=== PATIENT | male | born 1945 | race Caucasian/White ===

== ENCOUNTER 2016-07-26 14:16 | Inpatient (IN) | payer MEDICARE, OTHER ==
[~2016-07-26] VITALS: Ht 182.9 cm; Wt 73.6 kg
[2016-07-26 14:19] VITALS: BP 147/68; PULSE 138; RESP 12; TEMP 98.9; O2SAT 97
[2016-07-26] MEDS ORDERED: SODIUM CHLOR 0.9% 1000 ML INJ 1,000 ML IV ONE ×2 (15:45)
--- NOTE | 2016-07-26 15:50 | PD ---
HPI Chief Complaint: General Weakness Time Seen by Provider: 15:23 Travel History International Travel<30 days: No Contact w/Intl Traveler<30days: No Traveled to known affect area: No History of Present Illness HPI 71-year-old male who has a history of multiple sclerosis who presents to the emergency department feeling chills for 2 days, worse this morning, associated with a fever of 101. Patient reports he gets frequent urinary tract infections as he has an indwelling Morfin catheter and this feels similar. He also thinks he see hydrated. He says he may have some skin breakdown on his buttocks. He recently moved from [place]. He does not have a neurologist right now. He is only taking baclofen for his multiple sclerosis. [facility] Past Medical History Hypertension: Yes Medical other: Yes (MS) Tetanus Vaccination: Unknown Influenza Vaccination: No Past Surgical History Cholecystectomy: Yes Tonsillectomy: Yes Social History Alcohol Use: No Tobacco Use: No Substance Use: No Allergies-Medications (Allergen,Severity, Reaction): Coded Allergies: No Known Allergies (Unverified , 07/26/16) Reported Meds & Prescriptions Reported Meds & Active Scripts Active Reported One Daily For Men 50+ Adv (Multiple Vitamins W/ Minerals) 1 Tab Tab 1 Tab PO DAILY Flaxseed Oil (Flaxseed (Linseed)) 1,000 Mg Cap 1,000 Mg PO DAILY Fish Oil 1000 mg ([place]-3 Fatty Acids) 1 Cap Cap 3,000 Units PO DAILY Aspirin Adult Low Strength (Aspirin) 81 Mg Tabdr 81 Mg PO DAILY Klonopin (Clonazepam) 1 Mg Tab 1.5 Mg PO HS Lipitor (Atorvastatin Calcium) 10 Mg Tab 10 Mg PO DAILY Amlodipine (Amlodipine Besylate) 5 Mg Tab 7.5 Mg PO DAILY Baclofen 20 Mg Tab 20 Mg PO QID Review of Systems Except as stated in HPI: all other systems reviewed are Neg Physical Exam Narrative GENERAL: Frail elderly SKIN: Warm and dry. HEAD: Atraumatic. Normocephalic. EYES: Pupils equal and round. No injection or drainage. ENT: Dry mucous membranes. NECK: Trachea midline. CARDIOVASCULAR: Regular rate and rhythm. No murmur appreciated. RESPIRATORY: Clear to auscultation. Breath sounds equal bilaterally. GASTROINTESTINAL: Abdomen soft, non-tender, nondistended. MUSCULOSKELETAL: No obvious deformities. NEUROLOGICAL: Quadriplegia, no dysarthria or aphasia, speaks and answers questions appropriately. PSYCHIATRIC: Appropriate mood and affect; insight and judgment normal. Data Data Last Documented VS Vital Signs Date Time Temp Pulse Resp B/P Pulse Ox O2 Delivery O2 Flow Rate FiO2 07/26/16 17:50 106 18 147/70 97 Room Air 07/26/16 14:19 98.9 Orders Electrocardiogram (07/26/16 14:20) Complete Blood Count With Diff (07/26/16 14:20) Comprehensive Metabolic Panel (07/26/16 15:45) Blood Culture (07/26/16 15:45) Lactic Acid (07/26/16 15:45) Urinalysis - C+S If Indicated (07/26/16 15:45) Sodium Chlor 0.9% 1000 Ml Inj (Ns 1000 M (07/26/16 15:45) Sodium Chlor 0.9% 1000 Ml Inj (Ns 1000 M (07/26/16 15:45) Consult Vascular Access Team (07/26/16 ) Vascular Poc Ultrasound (07/26/16 ) Chest, Single Ap (07/26/16 ) Vancomycin Inj (Vancomycin Inj) (07/26/16 18:15) Cefepime Inj (Maxipime Inj) (07/26/16 18:15) Influenzae A/B Antigen (07/26/16 18:04) Admit Order (Ed Use Only) (07/26/16 18:17) Labs Laboratory Tests Test 07/26/16 16:20 White Blood Count 15.0 TH/MM3 Red Blood Count 5.05 MIL/MM3 Hemoglobin 14.7 GM/DL Hematocrit 41.0 % Mean Corpuscular Volume 81.3 FL Mean Corpuscular Hemoglobin 29.1 PG Mean Corpuscular Hemoglobin 35.8 % Concent Red Cell Distribution Width 14.7 % Platelet Count 222 TH/MM3 Mean Platelet Volume 8.6 FL Neutrophils (%) (Auto) 86.2 % Lymphocytes (%) (Auto) 8.2 % Monocytes (%) (Auto) 5.4 % Eosinophils (%) (Auto) 0.0 % Basophils (%) (Auto) 0.2 % Neutrophils # (Auto) 13.0 TH/MM3 Lymphocytes # (Auto) 1.2 TH/MM3 Monocytes # (Auto) 0.8 TH/MM3 Eosinophils # (Auto) 0.0 TH/MM3 Basophils # (Auto) 0.0 TH/MM3 CBC Comment DIFF FINAL Differential Comment Urine Color YELLOW Urine Turbidity HAZY Urine pH 7.0 Urine Specific [place] 1.009 Urine Protein NEG mg/dL Urine Glucose (UA) NEG mg/dL Urine Ketones 40 mg/dL Urine Occult Blood NEG Urine Nitrite NEG Urine Bilirubin NEG Urine Urobilinogen LESS THAN 2.0 MG/DL Urine Leukocyte Esterase NEG Urine RBC 1 /hpf Urine WBC 1 /hpf Urine Bacteria RARE /hpf Urine Mucus FEW /lpf Microscopic Urinalysis Comment CATH-CULT NOT IND Sodium Level 135 MEQ/L Potassium Level 3.0 MEQ/L Chloride Level 98 MEQ/L Carbon Dioxide Level 27.1 MEQ/L Anion Gap 10 MEQ/L Blood Urea Nitrogen 5 MG/DL Creatinine 0.43 MG/DL Estimat Glomerular Filtration 196 ML/MIN Rate Random Glucose 122 MG/DL Lactic Acid Level 1.3 mmol/L Calcium Level 8.8 MG/DL Total Bilirubin 1.8 MG/DL Aspartate Amino Transf 30 U/L (AST/SGOT) Alanine Aminotransferase 52 U/L (ALT/SGPT) Alkaline Phosphatase 179 U/L Total Protein 8.0 GM/DL Albumin 3.7 GM/DL MDM Medical Decision Making Medical Screen Exam Complete: Yes Emergency Medical Condition: Yes Interpretation(s) Afebrile, tachycardic, hypertensive Leukocytosis with left shift Hypokalemia Lactic acid 1.3 Urinalysis negative for infection Differential Diagnosis Urinary tract infection, pneumonia, influenza, cellulitis Narrative Course This is a 71-year-old male who presents to the emergency department with fever and tachycardia. He has a history of multiple sclerosis and is a quadriplegic. Patient was placed on a monitor and an IV was established. Labs are obtained which demonstrates a white count of 15 with a left shift. Urinalysis was negative for infection but chest x-ray does reveal a possible pneumonia. Patient will be admitted for IV antibiotics. Diagnosis Primary Impression: Pneumonia Qualified Code: J18.1 - Pneumonia of right middle lobe due to infectious organism Admitting Information Admitting Physician Requests: Admit Nelsy Jean MD Jul 26, 2016 15:50
[2016-07-26 16:54] LABS: BASOPHIL % 0.2 % (0.0-2.0); HEMO FLAGS DIFF FINAL; LYMPH % 8.2 % (9.0-44.0); LYMPHOCYTE # 1.2 TH/MM3 (1.0-4.8); MEAN CELL VOLUME 81.3 FL (80.0-100.0); MEAN CORPUSCULAR HEMOGLOBIN 29.1 PG (27.0-34.0); MEAN CORPUSCULAR HGB CONC 35.8 % (32.0-36.0); MONO % 5.4 % (0.0-8.0); NEUT % 86.2 % (16.0-70.0); PLATELET COUNT 222 TH/MM3 (150-450); RED BLOOD COUNT 5.05 MIL/MM3 (4.50-5.90); RED CELL DISTRIBUTION WIDTH 14.7 % (11.6-17.2)
[2016-07-26] MEDS ORDERED: AMLO5TAB2 PO (16:55)
[2016-07-26] MEDS ORDERED: ASPI1TAB91 PO (16:55)
[2016-07-26] MEDS ORDERED: OMEG100037 PO (16:55)
[2016-07-26] MEDS ORDERED: BACL20TA PO (16:55)
[2016-07-26] MEDS ORDERED: LIPI10TA PO (16:55)
[2016-07-26] MEDS ORDERED: CLON1 PO (16:55)
[2016-07-26 16:57] LABS: BACTERIA, URINE RARE /hpf; BLOOD, URINE NEG (NEG); GLUCOSE,URINE NEG (NEG); KETONE, URINE 40 mg/dL (NEG); MUCUS URINE FEW /lpf (OCC); NITRITE,URINE NEG (NEG); URINE COLOR YELLOW (YELLW/STRAW)
[2016-07-26] MEDS ORDERED: ONETAB9 PO (16:57)
[2016-07-26] MEDS ORDERED: FLAX10006 PO (16:57)
[2016-07-26 16:59] LABS: COMMENT (UR) CATH-CULT NOT IND; CULTURE IF INDICATED CATH CULTURE NOT IND
[2016-07-26 17:12] LABS: ANION GAP 10 MEQ/L (5-15); AST (GOT) 30 U/L (15-37); BICARBONATE 27.1 MEQ/L (21.0-32.0); BLOOD UREA NITROGEN 5 MG/DL (7-18); CHLORIDE 98 MEQ/L (98-107); GLOMERULAR FILTRATION RATE 196 ML/MIN (>89); SODIUM (NA) 135 MEQ/L (136-145)
[2016-07-26 17:15] LABS: ALKALINE PHOSPHATASE 179 U/L (45-117); ALT (GPT) 52 U/L (12-78); TOTAL BILIRUBIN ADULT 1.8 MG/DL (0.2-1.0)
[2016-07-26 17:50] VITALS: BP 147/70; PULSE 106; RESP 18; O2SAT 97
[2016-07-26] MEDS ORDERED: CEFEPIME INJ 2,000 MG in SODIUM CHLORIDE 0.9% INJ 100 ML IV ONE (18:15)
[2016-07-26] MEDS ORDERED: VANCOMYCIN INJ 1,250 MG in SODIUM CHLOR 0.9% 250 ML INJ 250 ML IV ONE (18:15)
--- NOTE | 2016-07-26 18:23 | RADRPT ---
EXAM DATE/TIME: 07/26/2016 18:09 [place] COMPARISON: No previous studies available for comparison. INDICATIONS : Fever. MEDICAL HISTORY : Paralysis. SURGICAL HISTORY : None. ENCOUNTER: Initial ACUITY: 1 day PAIN SCORE: 0/10 LOCATION: Bilateral chest FINDINGS: Minimal infiltrates seen laterally at the right mid lung. Lungs otherwise appear clear. No pleural ef fusion or pneumothorax. Heart size normal. CONCLUSION: Focal right mid lung pneumonia. Followup to resolution recommended. Vj Jones MD on July 26, 2016 at 18:21 Board Certified Radiologist. This report was verified electronically.
--- NOTE | 2016-07-26 18:54 | HHI.HP ---
[facility] Service Family Medicine Primary Care Physician No Primary Care Physician Admission Diagnosis sepsis Diagnoses: International Travel<30 Days: No Contact w/Intl Traveler<30days: No Known Affected Area: No History of Present Illness This is a 71-year-old quadriplegic male who presents with fever and chills since this morning. He woke up this morning 07/26/2016 feeling chilled. He also felt sick to his stomach and had the shakes. He knew by 10 AM that "something was wrong." He states he knows his body very well and knows when he has a high white count. He is quadriplegic and sedentary. He states his brother had a pneumonia last week. Denies coughing, nausea, vomiting, diarrhea. He does use a condom catheter and has had urinary tract infections in the past. He denies dysuria, urinary frequency. Review of Systems Constitutional: COMPLAINS OF: Fever, Chills Eyes: DENIES: Blurred vision, Diplopia Ears, nose, mouth, throat: DENIES: Tinnitus, Hearing loss Respiratory: COMPLAINS OF: Sputum production, DENIES: Cough, Shortness of breath Cardiovascular: DENIES: Chest pain, Palpitations Gastrointestinal: DENIES: Abdominal pain, Black stools, Constipation, Diarrhea , Nausea, Vomiting Genitourinary: DENIES: Urgency, Hematuria, Dysuria Neurologic: DENIES: Abnormal gait, Headache Past Family Social History Past Medical History MS Quadripelgic since 29 years of age Past Surgical History Gall bladder Tonsilectomy Reported Medications Reported Meds & Active Scripts Active Reported One Daily For Men 50+ Adv (Multiple Vitamins W/ Minerals) 1 Tab Tab 1 Tab PO DAILY Flaxseed Oil (Flaxseed (Linseed)) 1,000 Mg Cap 1,000 Mg PO DAILY Fish Oil 1000 mg ([place]-3 Fatty Acids) 1 Cap Cap 3,000 Units PO DAILY Aspirin Adult Low Strength (Aspirin) 81 Mg Tabdr 81 Mg PO DAILY Klonopin (Clonazepam) 1 Mg Tab 1.5 Mg PO HS Lipitor (Atorvastatin Calcium) 10 Mg Tab 10 Mg PO DAILY Amlodipine (Amlodipine Besylate) 5 Mg Tab 7.5 Mg PO DAILY Baclofen 20 Mg Tab 20 Mg PO QID Allergies: Coded Allergies: No Known Allergies (Unverified , 07/26/16) Active Ordered Medications Active Medications Cefepime HCl/ Sodium Chloride (Maxipime Inj/NS Inj) 100 ml @ 200 mls/hr ONCE ONCE IV; Start 07/26/16 at 18:15; Stop 07/26/16 at 18:44; Status DC Sodium Chloride 1,000 ml @ 999 mls/hr BOLUS ONCE IV Last administered on t 17:49; Admin Dose 999 MLS/HR; Start 07/26/16 at 15:45; Stop 07/26/16 at 16:45 ; Status DC Sodium Chloride 1,000 ml @ 999 mls/hr BOLUS ONCE IV; Start 07/26/16 at 15:45; Stop 07/26/16 at 16:45; Status DC Vancomycin HCl 1250 mg/Sodium Chloride 262.5 ml @ 250 mls/hr ONCE ONCE IV; Start 07/26/16 at 18:15; Stop 07/26/16 at 19:17 Family History Mom: healthy Dad: alcoholic, cirrhosis Social History From [place]; 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 No acute distress. SKIN: No rashes, ecchymoses or lesions. Cool and dry. HEAD: Atraumatic. Normocephalic. No temporal or scalp tenderness. EYES: Pupils equal round and reactive. Extraocular motions intact. No scleral icterus. No injection or drainage. ENT: Nose without bleeding, purulent drainage or septal hematoma. Throat without erythema, tonsillar hypertrophy or exudate. Uvula midline. Airway patent. NECK: Trachea midline. No JVD or lymphadenopathy. Supple, nontender, no meningeal signs. CARDIOVASCULAR: Tachycardic rate and rhythm without murmurs, gallops, or rubs. RESPIRATORY: Clear to auscultation. Breath sounds equal bilaterally. No wheezes , rales, or rhonchi. GASTROINTESTINAL: Abdomen soft, non-tender, nondistended. No hepato-splenomegaly , or palpable masses. No guarding. MUSCULOSKELETAL: Extremities without clubbing, cyanosis, or edema. No joint tenderness, effusion, or edema noted. No calf tenderness. Negative Homans sign bilaterally. NEUROLOGICAL: Awake and alert. Cranial nerves II through XII intact. Motor and sensory grossly within normal limits. Five out of 5 muscle strength in all muscle groups. Normal speech. Laboratory Laboratory Tests Test 07/26/16 16:20 White Blood Count 15.0 Red Blood Count 5.05 Hemoglobin 14.7 Hematocrit 41.0 Mean Corpuscular Volume 81.3 Mean Corpuscular Hemoglobin 29.1 Mean Corpuscular Hemoglobin 35.8 Concent Red Cell Distribution Width 14.7 Platelet Count 222 Mean Platelet Volume 8.6 Neutrophils (%) (Auto) 86.2 Lymphocytes (%) (Auto) 8.2 Monocytes (%) (Auto) 5.4 Eosinophils (%) (Auto) 0.0 Basophils (%) (Auto) 0.2 Neutrophils # (Auto) 13.0 Lymphocytes # (Auto) 1.2 Monocytes # (Auto) 0.8 Eosinophils # (Auto) 0.0 Basophils # (Auto) 0.0 CBC Comment DIFF FINAL Differential Comment Urine Color YELLOW Urine Turbidity HAZY Urine pH 7.0 Urine Specific [place] 1.009 Urine Protein NEG Urine Glucose (UA) NEG Urine Ketones 40 Urine Occult Blood NEG Urine Nitrite NEG Urine Bilirubin NEG Urine Urobilinogen LESS THAN 2.0 Urine Leukocyte Esterase NEG Urine RBC 1 Urine WBC 1 Urine Bacteria RARE Urine Mucus FEW Microscopic Urinalysis Comment CATH-CULT NOT IND Sodium Level 135 Potassium Level 3.0 Chloride Level 98 Carbon Dioxide Level 27.1 Anion Gap 10 Blood Urea Nitrogen 5 Creatinine 0.43 Estimat Glomerular Filtration 196 Rate Random Glucose 122 Lactic Acid Level 1.3 Calcium Level 8.8 Total Bilirubin 1.8 Aspartate Amino Transf 30 (AST/SGOT) Alanine Aminotransferase 52 (ALT/SGPT) Alkaline Phosphatase 179 Total Protein 8.0 Albumin 3.7 Date/Time Procedure Status Source Growth 07/26/16 16:25 Aerobic Blood Culture Received Blood Peripheral Pending 07/26/16 16:25 Anaerobic Blood Culture Received Blood Peripheral Pending Result Diagram: 07/26/16 1620 07/26/16 1620 Imaging Chest x-ray-focal right mid lung pneumonia. Follow-up to resolution recommended. Assessment and Plan Assessment and Plan 71-year-old quadriplegic male presents septic (tachycardic, increased white count, pneumonia on x-ray). He will be treated with IV antibiotics and fluids. Code Status Full Discussed Condition With Dr. Muniz Problem List: (1) Sepsis Status: Acute Plan: Patient meets sepsis criteria with elevated heart rate, increased white blood cell count, pneumonia on x-ray. Patient was given IV fluids, vancomycin and cefepime in the emergency room. -Blood cultures pending. -Lactic acid 1.3 -Continue normal saline 120 mL per hour -Ceftriaxone 1 g every 24 hours IV -Azithromycin 500 mg every 24 hours IV -Repeat labs in a.m. (2) Pneumonia Status: Acute Plan: See above for sepsis. (3) Quadriplegia Status: Acute Plan: Nursing order for patient to be placed near nurses station as he cannot use the call button. Vitals every 2 hours Patient will also need help with feedings Continue condom catheter use Patient has personal physical therapy regimen at home and does not want physical therapy consult at this time. (4) FEN/PPX Status: Acute Plan: Fluids: Normal saline at 120 ml per hour Electrolytes: Monitor and replace when necessary Nutrition: Regular diet Prophylaxis: Lovenox 40 mg subcutaneous Chronic medical problems: Multiple sclerosis- continue baclofen 20 mg by mouth 4 times a day Hypertension-continue amlodipine 5 mg by mouth daily Hyperlipidemia-continue Lipitor 10 mg by mouth daily Anxiety-continue Klonopin 1.5 mg by mouth at bedtime Physician Certification 2 Midnight Certification Type: Admission for Inpatient Services Order for Inpatient Services The services are ordered in accordance with Medicare regulations or non- Medicare payer requirements, as applicable. In the case of services not specified as inpatient-only, they are appropriately provided as inpatient services in accordance with the 2-midnight benchmark. Estimated LOS (days): 2 days is the estimated time the patient will need to remain in the hospital, assuming treatment plan goals are met and no additional complications. Post-Hospital Plan: Home Problem Qualifiers (1) Pneumonia: Qualified Code: J18.1 - Pneumonia of right middle lobe due to infectious organism Jamir Rdz MD R2 Jul 26, 2016 18:53
[2016-07-26] MEDS ORDERED: ONDANSETRON HCL 4 MG/2 ML VIAL IV PRN (19:45)
[2016-07-26] MEDS ORDERED: hydrALAZINE HCL 10 MG TAB PO PRN (19:45)
[2016-07-26] MEDS ORDERED: TEMAZEPAM 15 MG CAP PO PRN (19:45)
[2016-07-26] MEDS ORDERED: MORPHINE SULFATE 4 MG/ML INJ IV PUSH PRN (19:45)
[2016-07-26] MEDS ORDERED: ACETAMINOPHEN 325 MG TAB PO PRN (19:45)
[2016-07-26] MEDS ORDERED: DOCUSATE SODIUM 50 MG/SENNA 8.6 MG TAB PO PRN (19:45)
[2016-07-26] MEDS ORDERED: POTASSIUM CHLORIDE 25 MEQ EFFERVESCENT TAB PO ONE (20:00)
[2016-07-26] MEDS ORDERED: PILL SPLITTER OTHER PRN (20:00)
[2016-07-26] MEDS ORDERED: ENOXAPARIN SODIUM 40 MG/0.4 ML SYRINGE SQ SCH (20:00)
[2016-07-26] MEDS: SODIUM CHLOR 0.9% 1000 ML INJ 1,000 ML IV SCH (20:53)
[2016-07-26] MEDS ORDERED: clonazePAM 1 MG TAB PO SCH (21:00)
[2016-07-27] VITALS: BP 136/63; PULSE 105; RESP 20; TEMP 98.8; O2SAT 98
[2016-07-27] MEDS: BACLOFEN 20 MG TAB PO SCH ×2 (00:02→08:59)
[2016-07-27 04:00] VITALS: BP 136/66; PULSE 101; RESP 18; TEMP 98.9; O2SAT 98
[2016-07-27] MEDS: SODIUM CHLOR 0.9% 1000 ML INJ 1,000 ML IV SCH (04:20)
[2016-07-27 06:57] LABS: AUTOMATED NEUTROPHIL # 3.6 TH/MM3 (1.8-7.7); BASOPHIL % 0.5 % (0.0-2.0); EOSINOPHIL % 0.5 % (0.0-4.0); HEMATOCRIT 36.2 % (39.0-51.0); HEMO FLAGS DIFF FINAL; LYMPH % 29.3 % (9.0-44.0); LYMPHOCYTE # 1.8 TH/MM3 (1.0-4.8); MEAN CELL VOLUME 81.2 FL (80.0-100.0); MEAN CORPUSCULAR HEMOGLOBIN 29.1 PG (27.0-34.0); MEAN CORPUSCULAR HGB CONC 35.8 % (32.0-36.0); MONO % 10.1 % (0.0-8.0); NEUT % 59.6 % (16.0-70.0); PLATELET COUNT 160 TH/MM3 (150-450); RED BLOOD COUNT 4.46 MIL/MM3 (4.50-5.90); RED CELL DISTRIBUTION WIDTH 14.6 % (11.6-17.2); WHITE BLOOD COUNT 6.1 TH/MM3 (4.0-11.0)
[2016-07-27 07:31] LABS: ALKALINE PHOSPHATASE 142 U/L (45-117); ALT (GPT) 47 U/L (12-78); ANION GAP 10 MEQ/L (5-15); AST (GOT) 29 U/L (15-37); BICARBONATE 24.7 MEQ/L (21.0-32.0); BLOOD UREA NITROGEN 4 MG/DL (7-18); CHLORIDE 105 MEQ/L (98-107); GLOMERULAR FILTRATION RATE 296 ML/MIN (>89); SODIUM (NA) 140 MEQ/L (136-145); TOTAL BILIRUBIN ADULT 1.4 MG/DL (0.2-1.0)
[2016-07-27 07:43] LABS: POTASSIUM 2.8 MEQ/L (3.5-5.1)
[2016-07-27 08:14] VITALS: BP 124/67; PULSE 101; RESP 18; TEMP 97.5; O2SAT 98
[2016-07-27] MEDS ORDERED: SOD PHOSPHATE/SOD BIPHOSPHATE (ADULT) ENEMA 133ML PR PRN (08:15)
[2016-07-27] MEDS ORDERED: POTASSIUM CHLORIDE 20 MEQ CONTROLLED RELEASE TAB PO ONE (08:15)
[2016-07-27] MEDS ORDERED: SOD PHOSPHATE/SOD BIPHOSPHATE (ADULT) ENEMA 133ML PR ONE (08:15)
[2016-07-27] MEDS ORDERED: LEVA750T PO (08:59)
[2016-07-27] MEDS ORDERED: POTASSIUM CHLORIDE 10 MEQ CONTROLLED RELEASE TAB PO ONE (09:00)
[2016-07-27] MEDS ORDERED: ATORVASTATIN 10 MG TAB PO SCH (09:00)
[2016-07-27] MEDS ORDERED: amLODIPine BESYLATE 5 MG TAB PO SCH (09:00)
[2016-07-27] MEDS ORDERED: ASPIRIN EC 81 MG TABEC PO SCH (09:00)
--- NOTE | 2016-07-27 09:00 | HHI.DCPOC ---
Discharge Care Plan Diagnosis: (1) Pneumonia (2) Quadriplegia Goals to Promote Your Health * To prevent worsening of your condition and complications * To maintain your health at the optimal level Directions to Meet Your Goals Take your medications as prescribed Follow your dietary instruction Follow activity as directed Keep your appointments as scheduled Take your immunizations and boosters as scheduled If your symptoms worsen call your PCP, if no PCP go to Urgent Care Center or Emergency Room Smoking is Dangerous to Your Health. Avoid second hand smoke Call the 24-hour hour crisis hotline for domestic abuse at Jamir Rdz MD R2 Jul 27, 2016 09:00
[2016-07-27] MEDS ORDERED: POTASSIUM CL 40 MEQ/30 ML LIQ UDC PO ONE (10:00)
--- NOTE | 2016-07-27 10:08 | HHI.FPPN ---
Subjective Remarks Pt. seen, examined and discussed with the medicine team. this is a 71 yo male with MS and resultant quadriplegia for 40 years, here with fever, chills and muscle aches at home. No cough. [place] [id number] caregivers. His brother lives here as well. He needs assistance for all ADLs. His brother recently was diagnosed with pneumonia. See H&P for this admission for additional past, family and social history. ROS this a.m. was obtained, his chills and aches are resolved, and he has no further sx of elevated temperature. Otherwise all systems negative. This a.m. he feels much better and would like to go home. Objective Vitals Vital Signs Date Time Temp Pulse Resp B/P Pulse Ox O2 Delivery O2 Flow Rate FiO2 07/27/16 08:14 97.5 101 18 124/67 98 07/27/16 04:00 98.9 101 18 136/66 98 07/27/16 00:00 98.8 105 20 136/63 98 07/26/16 17:50 106 18 147/70 97 Room Air 07/26/16 14:19 98.9 138 12 147/68 97 Room Air I/O 07/26/16 07/26/16 07/26/16 07/27/16 07/27/16 07/27/16 07:00 15:00 23:00 07:00 15:00 23:00 Intake Total 960 ml 1198 ml Output Total 1700 ml Balance -740 ml 1198 ml Intake Oral 960 ml IV Total 1198 ml Output Urine Total 1700 ml # Bowel Movements 0 Result Diagram: 07/27/16 0617 07/27/16 0617 Imaging Last Impressions Chest X-Ray 07/26/16 0000 Signed Impressions: Service Date/Time: Tuesday, July 26, 2016 18:09 - CONCLUSION: Focal right mid lung pneumonia. Followup to resolution recommended. Vj Jones MD Objective Remarks O. CONSTITUTIONAL/GEN: normally nourished, in NAD this a.m. EYES: conjunctiva normal, PERRLA, EOMI. ENT: Mouth and pharynx normal. NECK: thyroid midline neck supple. LUNGS: clear A-P, respiratory effort is normal. CARDIOVASCULAR: RR without murmur or gallop. No significant edema. GI/ABD: soft without masses, without organomegaly. NEURO: No focal deficits. SKIN: color normal, no rashes noted. HEME/LYMPH: no bruising, petechia or significant adenopathy PSYCH/MENTAL STATUS: Alert and oriented x 3. A/P Assessment and Plan 71-year-old quadriplegic male presents septic (tachycardic, increased white count, pneumonia on x-ray). He will be sent home with po Levaquin for 10 days and will need a f/u FINANCIAL SPECIALIST in 3-4 weeks. Attending Attestation Patient seen and examined. Case reviewed and discussed with the resident team. Agree with plan of care as discussed with me and documented in the resident note. Problem List: (1) Sepsis Status: Acute Plan: Patient meets sepsis criteria with elevated heart rate, increased white blood cell count, pneumonia on x-ray. Patient was given IV fluids, vancomycin and cefepime in the emergency room. -Blood cultures pending. -Lactic acid 1.3 -Continue normal saline 120 mL per hour -Ceftriaxone 1 g every 24 hours IV -Azithromycin 500 mg every 24 hours IV -Repeat labs in a.m. (2) Pneumonia Status: Acute Plan: See above for sepsis. (3) Quadriplegia Status: Acute Plan: Nursing order for patient to be placed near nurses station as he cannot use the call button. Vitals every 2 hours Patient will also need help with feedings Continue condom catheter use Patient has personal physical therapy regimen at home and does not want physical therapy consult at this time. (4) FEN/PPX Status: Acute Plan: Fluids: Normal saline at 120 ml per hour Electrolytes: Monitor and replace when necessary Nutrition: Regular diet Prophylaxis: Lovenox 40 mg subcutaneous Chronic medical problems: Multiple sclerosis- continue baclofen 20 mg by mouth 4 times a day Hypertension-continue amlodipine 5 mg by mouth daily Hyperlipidemia-continue Lipitor 10 mg by mouth daily Anxiety-continue Klonopin 1.5 mg by mouth at bedtime Problem Qualifiers (1) Pneumonia: Qualified Code: J18.1 - Pneumonia of right middle lobe due to infectious organism Jes Rdz MD Jul 27, 2016 10:07
[2016-07-27] MEDS ORDERED: AZITHROMYCIN INJ 500 MG in SODIUM CHLOR 0.9% 250 ML INJ 250 ML IV SCH (12:00)
[2016-07-27] MEDS ORDERED: cefTRIAXone INJ 1,000 MG in SODIUM CHLORIDE 0.9% INJ 100 ML IV SCH (12:00)
--- NOTE | 2016-07-27 23:59 | EKG ---
Date Performed: 07/26/2016 Time Performed: 14:41:07 PTAGE: 71 years EKG: SINUS TACHYCARDIA WITH FREQUENT VENTRICULAR PREMATURE COMPLEXES POSSIBLE LEFT ATRIAL ENLARG EMENT INCOMPLETE RIGHT BUNDLE BRANCH BLOCK RIGHT VENTRICULAR HYPERTROPHY ABNORMAL ECG NO PREVIOUS TRACING DOCTOR: Vanessa Pedroza Interpretating Date/Time 07/27/2016 23:50:37
--- NOTE | 2016-07-28 15:36 | HHI.FF ---
Face to Face Verification Diagnosis: (1) Sepsis (2) Pneumonia (3) Quadriplegia Home Health Nursing Order: Medical education Signs/symptoms of disease process Nursing assessment with vital signs Home Health Aide Order: To Assist In: Bathing and personal care, sponsorship coordinator and meal prep I have seen patient Alfredo Hopkins on 07/28/16. My clinical findings support the need for the requested home health care services because: Ltd mobility - disease progression Limited ability to care for self Need for psychosocial assistance Infection w/ risk of complications I certify that my clinical findings support that this patient is homebound because: Unsafe to leave home unassisted Need for psychosocial assistance [id number] bed/chair Pt is quadriplegic secondary to multiple sclerosis. Napoleon Muniz MD R1 Jul 28, 2016 15:36
== END 2016-07-27 10:57 | disposition home health service (06) | DRG 871 ==
LOC: NEPC 14:16 → NEDA 18:17 → N05B 21:42
PROVIDERS: ADMIT Family Medicine; ATTEND Family Medicine
DX: A41.9 Sepsis, unspecified organism (principal); J18.9 Pneumonia, unspecified organism; G35 Multiple sclerosis; E78.5 Hyperlipidemia, unspecified; I10 Essential (primary) hypertension; F41.9 Anxiety disorder, unspecified
CPT/HCPCS: 71010; 76937; 80053; 81001; 83605; 85025; 87040; 93005; J0692; J1650; J3370; J7030; J7050